=== PATIENT | male | born 1970 | race Caucasian/White ===

== ENCOUNTER 2022-03-05 13:36 | Outpatient (CLI) | payer BC, SELFPAY ==
--- NOTE | 2022-03-06 16:18 | WPDPFTINT ---
PFT Procedure Performed PFT Procedure Performed Spirometry with Pre/Post Bronchodilator Plethysmography (Lung Vol) Diffusing Cap (DLCO) PFT Interpretation DOS: 03/05/2022 REQUESTING: Fany Mckeon [facility]- REASON FOR TESTING: Dyspnea on exertion PULMONARY FUNCTION TESTS The patient had difficulty with all efforts during testing, and said that he was close to passing out. There was only 1 acceptable post-spirometry effort. Spirometry: pre bronchodilator FEV1 is 84% predicted, 3.69 L, normal. The pre bronchodilator FVC is 94% predicted, 5.36 L, normal. The FEV1/FVC ratio is 69% normal. After bronchodilator administration there is a 4% increase in the FEV1 and a 1% increase in the FVC, non statistically significant changes. Lung volumes: The total lung capacity is 95% predicted, 7.36 L, normal. The functional residual capacity is 84%, 3.4 L, normal. The ERV is 66%, 1.2 L, decreased. The residual volume is 88%, 2 L, normal. The FEV1/FVC is 27% predicted, no evidence of air trapping. Increased airway resistance. Diffusion: DLCO is 90%, normal. DLCO/VA 104%. Flow volume loop: There is only one acceptable inspiratory loop. This single inspiratory loop and the best expiratory loop are reviewed and are unremarkable. IMPRESSION: The spirometry shows a normal pattern without airflow obstruction, no significant is response to bronchodilator. Normal lung volumes. Normal diffusion. The patient experienced difficulty with all parts of the testing was close to passing out. Clinical correlation recommended. Kelley Francisco MD
--- NOTE | 2022-03-06 16:27 | WPDSIXMINUTE ---
Six Minute Walk Procedure Procedure Performed Pulmonary Stress Test (6 min walk) Six Minute Walk Six Minute Walk: DOS: 03/05/2022 REQUESTING: KEYONA Hughes REASON FOR TESTING: Dyspnea on exertion SIX MINUTE WALK This test was conducted per ATS guidelines. The initial saturation was 95%, pulse 82. The blood pressure was 136/84. The test was conducted on room air. Saturation stayed 95% and above. Pulse ranged from 74-104. At the end of the study, saturation was 97%, pulse was 81, back to baseline. The patient walked a total of 1700 ft/ 518 m. IMPRESSION: This is a normal 6 minute walk, no need for supplemental oxygen with exertion. Distance walked is acceptable for his age.
== END 2022-03-05 13:37 | disposition home or self-care (01) ==
PROVIDERS: Visit Provider Nurse Practitioner
DX: R06.09 Other forms of dyspnea (principal)
CPT/HCPCS: 94060; 94618; 94726; 94729

== ENCOUNTER 2023-01-27 12:33 | Outpatient (CLI) | payer BC, SELFPAY ==
--- NOTE | 2023-01-28 07:24 | P.METCHAL_ITS ---
Methacholine Procedure Perform Procedure Performed Methacholine Challenge Methacholine Challenge Methacholine Challenge: This is a methacholine challenge test. The test was performed and interpreted in accordance with the 2017 ERS technical standard, endorsed by the ATS, using the GLI 2012 reference equations. Testing was performed with increasing doses of nebulized methacholine following a quadrupling dosage protocol. The methacholine dose was delivered via the Sarenzaist nebulizer using a 1-minutes tidal breathing protocol. The best post-methacholine FEV1 values were used to determine the change from the post diluent FEV1. The delivered dose of methacholine was used to calculate the provocative dose causing a 20% fall in FEV1 (PD20). Findings: Baseline FEV1 4.16 L, 95% predicted. Post diluent FEV1 4.20 L Post 1.81 mcg methacholine FEV1 3.95 L, decreased 6% Post 7.26 mcg methacholine FEV1 3.97 L, decreased 5% Post 29.03 mcg methacholine FEV1 4.00 L, decreased 5% Post 116.1 mcg methacholine FEV1 3.77 L, decreased 10% Post 464.4 mcg methacholine FEV1 3.39 L, decreased 19% Post albuterol nebulization FEV1 3.98 L Impression: The PD20 is > 400 mcg which is categorized as normal airway hyperresponsiveness. There are no prior methacholine challenge studies for comparison
== END 2023-01-27 12:34 | disposition home or self-care (01) ==
PROVIDERS: Visit Provider Nurse Practitioner
DX: R05.9 Cough, unspecified (principal)
CPT/HCPCS: 94070; J7674